=== PATIENT | male | born 1965 | race Caucasian/White ===

== ENCOUNTER 2018-04-04 10:30 | Day surgery (SDC) | payer OTHER ==
--- NOTE | 2018-04-04 10:11 | HP ---
DATE OF SURGERY: 04/04/2018 HISTORY OF PRESENT ILLNESS: The patient is a 52 year-old who had some aches and pains left upper quadrant. No obvious hernia on CT scan. Question whether he has got lipoma or other abdominal wall nodule versus occult hernia not showing up on CT scan. PAST MEDICAL HISTORY: Congestive heart failure, history of atrial fibrillation, tachycardia, hypertension, stage III chronic obstructive pulmonary disease. PAST SURGICAL HISTORY: Back surgery, foot surgery. He had a cath in the past. MEDICATIONS: Includes amiodarone, Breo Ellipta, carvedilol, Eliquis, famotidine, lisinopril, oxycodone, Pravastatin, Spironolactone, Ventolin HFA.. ALLERGIES: NKDA. FAMILY HISTORY: Negative. SOCIAL HISTORY: No smoking or alcohol abuse currently. REVIEW OF SYSTEMS: Twelve systems reviewed. No chest pain or palpitations. Pertinent for chronic lung disease, heart disease as mentioned above. PHYSICAL EXAMINATION: GENERAL: No acute distress. HEENT: Sclerae nonicteric. NECK: No JVD. CHEST: Equal excursion, nonlabored breathing. CVS: Regular rate and rhythm. ABDOMEN: Soft. Tenderness in left upper quadrant. Unclear whether he has got a lipoma there versus small occult hernia. EXTREMITIES: No significant edema. NEURO: Alert, oriented, moving extremities symmetrically. No gross motor deficits noted. IMPRESSION: Abdominal wall pain question lipoma or other subcu mass versus very occult hernia. I feel the patient will benefit from abdominal wall exploration given his increased symptoms as well as excisional biopsy of subcu mass or lipoma as well if there is occult hernia repair of occult hernia with possible mesh depending on operative findings. He was explained in detail including but not limited to bleeding or infection, risk of hematoma or seroma formation, possibility this procedure does not improve his aches or pains, general risk of anesthesia, deep venous thrombosis, pulmonary embolism or pneumonia. Possibility if he has occult hernia risk of mesh infection with possible mesh removal, risk of hernia recurrence as well as general risk of aches, pains, burning, numbness possible termite treater or chronic in nature, possibility the current aches and pains may not be improved that he could have new aches and pains from scar and incision. He understands all the above, accepts the risks and agrees to the planned procedure and will proceed with abdominal wall exploration, excisional biopsy of subcutaneous mass or lipoma possible repair of any occult hernia identified at the time of procedure with possible mesh.
[~2018-04-04 10:30] MED LIST: Lactated Ringers 1,000 ML IV ONE; Lactated Ringers 1,000 ML IV SCH; Sensorcaine 0.25% 10 ML ONE
[2018-04-04] MEDS ORDERED: Versed 2 MG/2 ML Injection IV ONE (10:31)
[2018-04-04] MEDS ORDERED: DIPRIVAN 200 MG/20 ML IV ONE (10:31)
[2018-04-04] MEDS ORDERED: Zemuron 100 MG/10 ML IV ONE (10:31)
[2018-04-04] MEDS ORDERED: BRIDION 200MG/2ML IV ONE (10:31)
[2018-04-04] MEDS ORDERED: SUBLIMAZE 250 MCG/5 ML IV ONE ×2 (10:31)
[2018-04-04 11:23] LABS: ALBUMIN 4.5 g/dL (3.5-5.0); ALKALINE PHOSPHATASE 60 U/L (38-126); ANION GAP 14.7 MEQ/L (5-15); BLOOD UREA NITROGEN 18 mg/dL (9-20); CHLORIDE 102 mmol/L (98-107); Calcium 9.8 mg/dL (8.4-10.2); Carbon Dioxide 27 mmol/L (22-30); Creatinine 1 1.12 mg/dL (0.66-1.25); Glucose 104 mg/dL (74-106); SGOT/AST 16 U/L (17-59); SGPT/ALT 20 U/L (0-50); SODIUM 140 mmol/L (137-145); Total Protein 7.2 g/dL (6.3-8.2)
[2018-04-04] MEDS ORDERED: KEFZOL 1 GM ONE (11:51)
[2018-04-04] MEDS ORDERED: SUBLIMAZE 100 MCG/2 ML ONE (12:58)
[2018-04-04 14:11] VITALS: BP 117/74; PULSE 56; O2SAT 96
--- NOTE | 2018-04-05 08:36 | OP ---
SURGERY DATE/TIME: 04/04/2018 1200 PREOPERATIVE DIAGNOSIS: Enlarging symptomatic subcutaneous mass left upper quadrant and lower left chest. POSTOPERATIVE DIAGNOSIS: Enlarging symptomatic subcutaneous mass left upper quadrant and lower left chest. PROCEDURE: Excisional biopsy of left upper quadrant/lower chest lipoma (approximately 6 cm) with intermediate closure. SURGEON: Dr. Fletcher Sosa. LINE ERECTOR: Manolo Fitzpatrick, Medical Student III. ANESTHESIA: General. ESTIMATED BLOOD LOSS: Minimal. INDICATIONS: As noted above. Risks and benefits explained in detail and not limited to and consent obtained. The site is confirmed and marked with the patient in the preoperative holding area. He had prior CT scan that did not show any obvious occult hernia in the area. DESCRIPTION OF PROCEDURE AND FINDINGS: The patient is taken to the operating room. General anesthesia induced. Abdomen and chest were prepped and draped in usual sterile fashion. After official time out and no disagreement with planned procedure, a transverse incision made overlying the area of dissection carried down through subcutaneous tissue and circumferentially around this lobulated denser lipomatous tissue dissecting off the underlying muscle and fascia. The specimen is passed off. It measured about 6 cm in size. Pin point cautery. Good hemostasis noted. The deep and superficial subcu closed with interrupted 3-0 Vicryl down to the level of the fascia. Skin closed with 4-0 Vicryl in subcuticular fashion. Steri-Strips and sterile dressing applied. 0.25% Marcaine local injected along the skin incision fascial defects. The patient tolerated the procedure well. There were no immediate complications. Findings discussed with the family out in the waiting area.
== END 2018-04-04 14:23 | disposition home or self-care (01) ==
LOC: SDC 10:30
PROVIDERS: ATTEND Surgery
DX: D17.1 Benign lipomatous neoplasm of skin and subcutaneous tissue of trunk (principal); R20.8 Other disturbances of skin sensation; I50.9 Heart failure, unspecified; I48.91 Unspecified atrial fibrillation; I10 Essential (primary) hypertension; J44.9 Chronic obstructive pulmonary disease, unspecified; Z79.01 Long term (current) use of anticoagulants; Z79.899 Other long term (current) drug therapy
CPT/HCPCS: 80053; 94250; J0690; J2250; J2704; J3010